=== PATIENT | female | born 1995 | race Caucasian/White ===

== ENCOUNTER 2017-08-14 08:14 | Inpatient (IN) ==
[2017-08-14] MEDS ORDERED: TERBUTALINE 1 MG/1 ML VIAL SUBCUT ONE ×2 (10:04→10:05)
[2017-08-14] MEDS ORDERED: LACTATED RINGERS 1,000 ML IV ONE (10:05)
[2017-08-14] MEDS ORDERED: ONDANSETRON 4 MG/2 ML VIAL IV PRN ×2 (12:56→23:26)
[2017-08-14] MEDS ORDERED: MEPERIDINE 50 MG/1 ML VIAL IV PRN (12:56)
[2017-08-14] MEDS ORDERED: MAGNESIUM SULF RIDER 100 ML IV ONE (12:58)
[2017-08-14] MEDS ORDERED: LACTATED RINGERS 1,000 ML IV SCH ×2 (13:00→23:26)
[2017-08-14 13:15] LABS: Basophils % 0.2 % (0.0-0.8); Eosinophils % 0.2 % (0.00-10.9); Hematocrit 30.5 VOL% (35.7-47.0); Hemoglobin 10.7 GM/DL (12.0-16.0); Immature Granulocytes % 1.3 %; Immature Granulocytes Absolute 0.17 #; Lymphocytes # 2.1 10*3/uL (1.4-4.0); Lymphocytes % 15.9 % (21.3-54.2); Mean Corpuscular HGB Conc 35.1 GM/DL (32-36); Mean Corpuscular Hemoglobin 30 PG (27-34); Mean Corpuscular Volume 85.9 FL (87-102); Mean Platelet Volume 10.6 FL (9.6-12.0); Monocytes # 0.8 10*3/uL (0.11-0.8); Monocytes % 6.1 % (1.7-12.7); Neutrophils # 10.1 10*3/uL (1.4-7.4); Neutrophils % 76.3 % (38.7-73.9); Platelet Count 239 T/CUMM (130-400); Red Blood Count 3.55 MC/CUMM (3.8-5.5); Red Cell Distribution Width 11.7 % (9.3-17.3); White Blood Count 13.2 T/CUMM (4-12)
[2017-08-14 13:44] LABS: Alanine Aminotransferase 13 U/L (13-56); Albumin 1.7 G/DL (3.4-5.0); Alkaline Phosphatase 189 U/L (45-117); Aspartate Amino Transferase 11 U/L (0-37); Bilirubin,Total < 0.39 MG/DL (0.2-1.0); Blood Urea Nitrogen 3 MG/DL (7-18); Calcium 7.4 MG/DL (8.5-10.1); Glucose 57 MG/DL (74-106); Osmolality,Calculated 271.5 MOS/KG (273-304); Potassium 3.7 MMOL/L (3.5-5.1); Sodium 139 MMOL/L (136-145); Total Protein 4.1 G/DL (6.4-8.3); Uric Acid 3.1 MG/DL (2.6-6.0)
[2017-08-14] MEDS ORDERED: MAGNESIUM SULF DRIP 40 GM/1,000 ML ML IV ONE (14:21)
[2017-08-14] MEDS ORDERED: MAGNESIUM SULF DRIP 40 GM/1,000 ML ML IV SCH (14:30)
[2017-08-14] MEDS ORDERED: CITRIC ACID/SODIUM CITRATE 30 ML UDCUP PO ONE (16:27)
[2017-08-14] MEDS ORDERED: ceFAZolin 2,000 MG in PREMIX 1 EACH IV ONE (16:27)
[2017-08-14] MEDS ORDERED: hydrOXYzine HCL 25 MG/1 ML VIAL IM PRN (16:29)
[2017-08-14] MEDS ORDERED: diphenhydrAMINE 50 MG/1 ML VIAL IV PRN (16:29)
[2017-08-14] MEDS ORDERED: FAMOTIDINE 20 MG/2 ML VIAL IV ONE (16:29)
[2017-08-14] MEDS ORDERED: OXYTOCIN 10 UNIT/ML VIAL IM ONE (16:56)
[2017-08-14] MEDS ORDERED: OXYTOCIN/LR 30 UNIT/1,000 ML BAG IV ONE (16:56)
[2017-08-14 18:33] LABS: Cord Arterial Blood HCO3 25.6 MMOL/L
[2017-08-14 18:34] LABS: Cord Venous Blood HCO3 21.7 MMOL/L; Cord Venous Blood PCO2 46.4 MMHG; Cord Venous Blood PO2 20.1
[2017-08-14 18:36] LABS: Cord Arterial Blood HCO3 24.9 MMOL/L
[2017-08-14 18:37] LABS: Cord Venous Blood HCO3 19.4 MMOL/L; Cord Venous Blood PCO2 64.6 MMHG
[2017-08-14 18:38] LABS: Cord Venous Blood PO2 8.4
[2017-08-14] MEDS ORDERED: MORPHINE 10 MG/10 ML VIAL ONE (18:42)
[2017-08-14 18:45] LABS: Apearance,Urine CLEAR (Clear); Bilirubin,Urine Negative (Negative); Blood, Urine Negative (Negative); Glucose,Urine (UA) Negative (Negative); Ketones,Urine 20 mg/dL (Negative); Mucus,Urine Occasional /LPF (Occasional); Nitrite,Urine Negative (Negative); Protein,Urine Negative; RBC,Urine <1 /HPF (0-4); Urine Color Straw (Yellow); Urine Specific Gravity 1.005 (1.001-1.035); Urine Urobilinogen < 2.0 EU/DL (0.2-1.0); WBC,Urine <1 /HPF (0-6)
[2017-08-14 19:59] LABS: Hematocrit 33.3 VOL% (35.7-47.0); Hemoglobin 11.4 GM/DL (12.0-16.0)
[2017-08-14] MEDS ORDERED: PROMETHAZINE INJ 25 MG in SODIUM CHLORIDE 0.9% 50 ML IV ONE (21:23)
[2017-08-14] MEDS ORDERED: PROMETHAZINE 25 MG/1 ML VIAL ONE (21:24)
[2017-08-14] MEDS ORDERED: OXYTOCIN/LR 20 UNIT/1,000 ML BAG IV ONE (23:26)
[2017-08-14] MEDS ORDERED: ACETAMINOPHEN 325 MG TABLET PO PRN (23:26)
[2017-08-14] MEDS ORDERED: SIMETHICONE CHEW 80 MG TABLET PO PRN (23:26)
[2017-08-14] MEDS ORDERED: RHO(D) IMMUNE GLOBULIN 300 MCG SYRINGE IM ONE (23:26)
[2017-08-15] MEDS: ceFAZolin 1,000 MG in SYRINGE 1 EACH IV SCH ×2 (02:32→10:03)
[2017-08-15 05:05] LABS: Basophils % 0.2 % (0.0-0.8); Eosinophils % 0.1 % (0.00-10.9); Hematocrit 29.3 VOL% (35.7-47.0); Hemoglobin 9.9 GM/DL (12.0-16.0); Immature Granulocytes % 0.8 %; Immature Granulocytes Absolute 0.11 #; Lymphocytes # 2.5 10*3/uL (1.4-4.0); Lymphocytes % 18.7 % (21.3-54.2); Mean Corpuscular HGB Conc 33.8 GM/DL (32-36); Mean Corpuscular Hemoglobin 30 PG (27-34); Mean Corpuscular Volume 87.5 FL (87-102); Mean Platelet Volume 11.1 FL (9.6-12.0); Monocytes # 1.4 10*3/uL (0.11-0.8); Monocytes % 10.5 % (1.7-12.7); Neutrophils # 9.5 10*3/uL (1.4-7.4); Neutrophils % 69.7 % (38.7-73.9); Platelet Count 211 T/CUMM (130-400); Red Blood Count 3.35 MC/CUMM (3.8-5.5); Red Cell Distribution Width 11.8 % (9.3-17.3); White Blood Count 13.6 T/CUMM (4-12)
[2017-08-15] MEDS: DOCUSATE SODIUM 100 MG CAPSULE PO SCH ×3 (07:34→20:48)
[2017-08-15] MEDS ORDERED: ceFAZolin 1,000 MG in SYRINGE 1 EACH IV ONE (09:51)
[2017-08-15] MEDS: FERROUS SULFATE 325 MG TABLET PO SCH ×2 (09:59→20:48)
[2017-08-15] MEDS: MULTIVITAMIN (PRENATAL) TABLET PO SCH (09:59)
[2017-08-15] MEDS: MAGNESIUM HYDROXIDE SUSP 30 ML UDCUP PO PRN (20:48)
[2017-08-16] MEDS: IBUPROFEN 800 MG TABLET PO PRN ×2 (07:51→17:05)
[2017-08-16] MEDS: MULTIVITAMIN (PRENATAL) TABLET PO SCH (08:18)
[2017-08-16] MEDS: FERROUS SULFATE 325 MG TABLET PO SCH ×2 (08:18→21:49)
[2017-08-16] MEDS: DOCUSATE SODIUM 100 MG CAPSULE PO SCH ×2 (08:19→21:45)
[2017-08-16] MEDS: MAGNESIUM HYDROXIDE SUSP 30 ML UDCUP PO PRN (21:45)
[2017-08-17] MEDS: IBUPROFEN 800 MG TABLET PO PRN ×2 (02:38→12:49)
[2017-08-17 07:33] VITALS: BP 122/60
[2017-08-17] MEDS: FERROUS SULFATE 325 MG TABLET PO SCH (09:43)
[2017-08-17] MEDS: MULTIVITAMIN (PRENATAL) TABLET PO SCH (09:43)
[2017-08-17] MEDS: DOCUSATE SODIUM 100 MG CAPSULE PO SCH (09:43)
== END 2017-08-17 14:30 | disposition home or self-care (01) | DRG 540 ==
LOC: N.RAD 08:14 → N.LD 08:16 → N.OB 23:00
PROVIDERS: ADMIT Obstetrics & Gynecology; ATTEND Obstetrics & Gynecology
PROC: LDCSECT (ICD-10-PCS; 2017-08-14 17:30)